=== PATIENT | female | born 1950 | race Caucasian/White ===

== ENCOUNTER → 2016-10-25 | Outpatient (CLI) | payer MEDICARE, OTHER ==
[~2016-10-25] MED LIST: ALPR0.254 PO; IBUP-1773 PO; LISI1TAB8 PO; METH5TAB5 PO; OSPE60TA2 PO; PROP20TA5 PO
--- NOTE | 2016-10-25 12:01 | Diagnostic Imaging Report ---
Three views of the lumbar spine. INDICATION: Low back pain. FINDINGS: The alignment of the lumbar spine is satisfactory. The vertebral body heights are preserved. There is mild right convexity curvature, which could be positional. The disc heights are also preserved. No significant posterior osteophytes seen. The sacroiliac joints are well aligned. Aortic calcifications are incidentally noted. IMPRESSION: Mild right convexity curvature could be positional or related to mild scoliosis. Dictated by: Dictated on workstation # [id number]
--- NOTE | 2016-10-25 12:13 | Diagnostic Imaging Report ---
3 views of the sacrum and coccyx. INDICATION: Low back pain. FINDINGS: The sacroiliac joint alignment is satisfactory. There is suggestion of a bone island seen in the left sacrum ala adjacent to the S2 neural foramen measuring [address] of 08/06/2015. Tailgut cyst abutting the anterior aspect of the coccyx is not appreciated on this radiograph. The coccyx is somewhat obscured which could be related to this abnormality on the lateral view. No radiopaque foreign body seen. IMPRESSION: The coccyx is not well visualized which could potentially be related to cystic mass seen on CT of 08/06/2015. Correlate clinically and with followup CT scan of the pelvis is recommended. Dictated by: Dictated on workstation # [id number]
== END ==
LOC: RAD 10:26
PROVIDERS: ATTEND Family Medicine
DX: M54.5 Low back pain (principal)
CPT/HCPCS: 72100; 72220

== ENCOUNTER → 2016-11-22 | Outpatient (CLI) | payer MEDICARE, OTHER ==
--- NOTE | 2016-11-22 17:06 | Diagnostic Imaging Report ---
EXAMINATION: Transabdominal and transvaginal pelvic ultrasound. INDICATION: Uterine cyst. COMPARISON: 05/18/2016. FINDINGS: The uterus is 7.3 x 4.7 x 3.1 cm. There is interval thickening of the endometrium with a cystic area seen in the endometrium. The endometrial thickness is 7 mm, increased from the previous exam of 05/18/2016. There is some a cystic area again noted in the left side of the fundus of the uterus close to the endometrium. This was seen previously; however, there is a new echogenic focus seen within it. The cyst measurements are 1.2 x 1.2 x 1.1 cm. The echogenic focus demonstrates no definite internal vascularity with color Doppler and is 6 mm in size. The ovaries are obscured by bowel gas. IMPRESSION: Interval increased thickening in the endometrial stripe with cystic areas noted. The previously seen 1.1 cm cyst in the fundus now contains an echogenic focus measuring 6 mm inside it. Etiology is uncertain. The endometrial thickening may relate to an endometrial polyp, hyperplasia, or endometrial carcinoma. Report faxed to Dr. Diaz at 5:08 p.m. 11/22/2016/lisseth Dictated by: Dictated on workstation # [id number]
== END ==
LOC: RAD 15:47
PROVIDERS: ATTEND Obstetrics & Gynecology
DX: N85.8 Other specified noninflammatory disorders of uterus (principal)
CPT/HCPCS: 76830; 76856

== ENCOUNTER 2016-12-26 10:02 | Outpatient (CLI) | payer MEDICARE, OTHER ==
[~2016-12-26] VITALS: Ht 160 cm; Wt 76.9 kg
--- OUTSIDE RECORDS SUMMARY | 2016-12-26 10:07 | XMS REPORT | Continuity of Care Document ---
Author Author [facility] Organization [facility] Address Unknown Phone Unavailable Allergies Active Description Code Type Severity Reaction Onset Reported/Identified Relationship to Patient Clinical Status Yes metoclopramide [id number] Drug Allergy Unknown N/A 11/03/2008 Medications Problems Date Dx Coded Attending Type Code Diagnosis Diagnosed By 08/26/2015 JAREK KONG MD Ot K44.9 08/26/2015 DILAN WHITE, JAREK Camilo Ot R16.0 08/27/2015 JAREK KONG MD Ot M54.9 08/27/2015 DILAN WHITE, JAREK Camilo Ot N39.0 09/15/2015 JAREK KONG MD Ot M54.9 09/15/2015 DILAN WHITE, JAREK Camilo Ot N39.0 09/24/2015 DILAN WHITE, JAREK Camilo Ot K44.9 09/24/2015 JAREK KONG MD Ot R16.0 06/13/2016 STEPHANIE FELDER DO Ot 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 06/24/2016 STEPHANIE FELDER DO Ot 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 10/25/2016 JAREK KONG MD Ot M54.9 DORSALGIA, UNSPECIFIED 10/25/2016 JAREK KONG MD Ot N39.0 URINARY TRACT INFECTION, SITE NOT SPECIF 10/25/2016 JAREK KONG MD Ot K44.9 DIAPHRAGMATIC HERNIA WITHOUT OBSTRUCTION 10/25/2016 JAREK KONG MD Ot R16.0 HEPATOMEGALY, NOT ELSEWHERE CLASSIFIED 10/25/2016 STEPHANIE FELDER DO Ot 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 Visit Date/Time Discharge Status Pt. Type Provider Facility Loc./Unit Complaint [id number] 08/06/2015 13:54:00 2014 23:59:59 CLS Outpatient JAREK KONG MD [facility] RAD LIVER AND RETRORECTAL LESIONS [id number] 08/03/2015 15:24:00 2014 23:59:59 CLS Outpatient JAREK KONG MD [facility] RAD UTI, BACK PAIN [id number] 11/22/2016 15:47:00 ACT Outpatient STEPHANIE FELDER DO [facility] RAD UTERINE CYST [id number] 10/25/2016 10:26:00 ACT Outpatient MARTHA GARCIA DO [facility] RAD LOW BACK PAIN RIGHT SI JOINT [id number] 05/18/2016 15:18:00 ACT Outpatient STEPHANIE FELDER DO [facility] RAD UTERINE MASS
[2016-12-26] MEDS ORDERED: METH5TAB5 PO (10:16)
[2016-12-26] MEDS ORDERED: LISI1TAB8 PO (10:16)
[2016-12-26] MEDS ORDERED: OSPE60TA2 PO (10:16)
[2016-12-26] MEDS ORDERED: ALPR0.254 PO (10:16)
[2016-12-26] MEDS ORDERED: PROP20TA5 PO (10:16)
[2016-12-26 10:19] VITALS: BP 111/71
[2016-12-26 10:46] LABS: BASOPHILS % (AUTO) 0 % (0-10); EOSINOPHILS # (AUTO) 0.2 10^3/uL (0.0-0.3); EOSINOPHILS % (AUTO) 3 % (0-10); LYMPHOCYTES # (AUTO) 1.9 X 10^3 (1.0-4.0); LYMPHOCYTES % (AUTO) 29 % (12-44); MEAN CORPUSCULAR HEMOGLOBIN 29 PG (25-34); MEAN CORPUSCULAR HGB CONC 32 G/DL (32-36); MEAN CORPUSCULAR VOLUME 89 FL (80-99); MEAN PLATELET VOLUME 10.5 FL (7.4-10.4); MONOCYTES % (AUTO) 15 % (0-12); NEUTROPHILS # (AUTO) 3.4 X 10^3 (1.8-7.8); NEUTROPHILS % (AUTO) 53 % (42-75); PLATELET COUNT 303 10^3/uL (130-400); RED BLOOD COUNT 4.35 10^6/uL (4.35-5.85); RED CELL DISTRIBUTION WIDTH 12.7 % (10.0-14.5); WHITE BLOOD COUNT 6.4 10^3/uL (4.3-11.0)
[2016-12-29] MEDS ORDERED: IBUP-1773 PO (11:03)
== END 2016-12-26 12:03 | disposition home or self-care (01) ==
LOC: PREOP 10:02
PROVIDERS: ATTEND Obstetrics & Gynecology
DX: Z01.812 Encounter for preprocedural laboratory examination (principal); Z11.2 Encounter for screening for other bacterial diseases; R93.8 Abnormal findings on diagnostic imaging of other specified body structures
CPT/HCPCS: 36415; 85025; 86850; 86900; 86901; 87081

== ENCOUNTER 2016-12-29 08:30 | Day surgery (SDC) | payer MEDICARE, OTHER ==
[~2016-12-29] VITALS: Ht 160 cm; Wt 76.9 kg
[~2016-12-29 08:30] MED LIST changes: -IBUP-1773 PO
--- OUTSIDE RECORDS SUMMARY | 2016-12-29 08:38 | XMS REPORT | Continuity of Care Document ---
Author Author [facility] Organization [facility] Address Unknown Phone Unavailable Allergies Active Description Code Type Severity Reaction Onset Reported/Identified Relationship to Patient Clinical Status Yes metoclopramide [id number] Drug Allergy Unknown N/A 11/03/2008 Yes metoclopramide [id number] Drug Allergy Moderate N/V 12/26/2016 Medications Problems Date Dx Coded Attending Type Code Diagnosis Diagnosed By 08/26/2015 JAREK KONG MD Ot K44.9 08/26/2015 DILAN WHITE, JAREK Camilo Ot R16.0 08/27/2015 DILAN WHITE, JAREK Camilo Ot M54.9 08/27/2015 DILAN WHITE, JAREK Camilo Ot N39.0 09/15/2015 DILAN WHITE, JAREK Camilo Ot M54.9 09/15/2015 DILAN WHITE, JAREK Camilo Ot N39.0 09/24/2015 DILAN WHITE, JAREK Camilo Ot K44.9 09/24/2015 DILAN WHITE, JAREK Camilo Ot R16.0 06/13/2016 STEPHANIE FELDER DO Ot [...] DO Ot N85.8 OTHER SPECIFIED NONINFLAMMATORY DISORDER 12/27/2016 STEPHANIE FELDER DO Ot R93.8 ABNORMAL FINDINGS ON DIAGNOSTIC IMAGING 12/27/2016 STEPHANIE FELDER DO Ot Z01.812 ENCOUNTER FOR PREPROCEDURAL LABORATORY E 12/27/2016 STEPHANIE FELDER DO Ot Z11.2 ENCOUNTER FOR SCREENING FOR OTHER BACTER Procedures Results Test Result Range Complete blood count (CBC) with automated white blood cell (WBC) differential - 12/26/16 10:15 Blood leukocytes automated count (number/volume) 6.4 10*3/ uL 4.3-11.0 Blood erythrocytes automated count (number/volume) 4.35 10*6 /uL 4.35-5.85 Venous blood hemoglobin measurement (mass/volume) 12.5 g/dL 11.5-16.0 Blood hematocrit (volume fraction) 39 % 35-52 Automated erythrocyte mean corpuscular volume 89 [foz_us] 80-99 Automated erythrocyte mean corpuscular hemoglobin (mass per erythrocyte) 29 pg 25-34 Automated erythrocyte mean corpuscular hemoglobin concentration measurement ( mass/volume) 32 g/dL 32-36 Automated erythrocyte distribution width ratio 12.7 % 10.0-14.5 Automated blood platelet count (count/volume) 303 10*3/uL 130-400 Automated blood platelet mean volume measurement 10.5 [foz_ us] 7.4-10.4 Automated blood neutrophils/100 leukocytes 53 % 42-75 Automated blood lymphocytes/100 leukocytes 29 % 12-44 Blood monocytes/100 leukocytes 15 % 0-12 Automated blood eosinophils/100 leukocytes 3 % 0-10 Automated blood basophils/100 leukocytes 0 % 0-10 Blood neutrophils automated count (number/volume) 3.4 10*3 1.8-7.8 Blood lymphocytes automated count (number/volume) 1.9 10*3 1.0-4.0 Blood monocytes automated count (number/volume) 1.0 10*3 0.0-1.0 Automated eosinophil count 0.2 10*3/uL 0.0-0.3 Automated blood basophil count (count/volume) 0.0 10*3/uL 0.0-0.1 Blood type T Indirect antibody screen panel - 12/26/16 10:15 ABO+Rh group OP NRG Blood group antibody screen NEGATIVE NRG Methicillin resistant Staphylococcus aureus (MRSA) screening culture - 10:15 Methicillin resistant Staphylococcus aureus (MRSA) screening culture NEG NRG Encounters ACCT No. Visit Date/Time Discharge Status Pt. Type Provider Facility Loc./Unit Complaint [id number] 12/26/2016 10:02:00 2016 12:03:00 DIS Outpatient STEPHANIE FELDER DO [facility] PREOP THICKENED UTERUS [id number] 08/06/2015 13:54:00 2014 23:59:59 CLS Outpatient JAREK KONG MD [facility] RAD LIVER AND RETRORECTAL LESIONS [id number] 08/03/2015 15:24:00 2014 23:59:59 CLS Outpatient JAREK KONG MD [facility] RAD UTI, BACK PAIN [id number] 12/29/2016 08:30:00 ACT Outpatient STEPHANIE FELDER DO [facility] SDC THICKENED UTERUS [id number] 11/22/2016 15:47:00 ACT Outpatient STEPHANIE FELDER DO [facility] RAD UTERINE CYST [id number] 10/25/2016 10:26:00 ACT Outpatient MARTHA GARCIA DO [facility] RAD LOW BACK PAIN RIGHT SI JOINT [id number] 05/18/2016 15:18:00 ACT Outpatient STEPHANIE FELDER DO [facility] RAD UTERINE MASS
--- OUTSIDE RECORDS SUMMARY | 2016-12-29 08:39 | XMS REPORT | Continuity of Care Document ---
Author Author [facility] Organization [facility] Address Unknown Phone Unavailable Allergies Active Description Code Type Severity Reaction Onset Reported/Identified Relationship to Patient Clinical Status Yes metoclopramide [id number] Drug Allergy Unknown N/A 11/03/2008 Yes metoclopramide [id number] Drug Allergy Moderate N/V 12/26/2016 Medications Problems [...] Status Pt. Type Provider Facility Loc./Unit Complaint [id number] 12/26/2016 10:02:00 2016 12:03:00 DIS Outpatient STEPHANIE FELDER DO [facility] PREOP THICKENED UTERUS [id number] 08/06/2015 13:54:00 2014 23:59:59 CLS Outpatient JAREK KONG MD [facility] RAD LIVER AND RETRORECTAL LESIONS [id number] 08/03/2015 15:24:00 2014 23:59:59 CLS Outpatient JAREK KONG MD [facility] RAD UTI, BACK PAIN [id number] 12/29/2016 08:30:00 ACT Outpatient STEPHANIE FELDER DO [facility] SDC THICKENED UTERUS [id number] 11/22/2016 15:47:00 ACT Outpatient STEPHANIE FELDER DO [facility] RAD UTERINE CYST [id number] 10/25/2016 10:26:00 ACT Outpatient MARTHA GARCIA DO [facility] RAD LOW BACK PAIN RIGHT SI JOINT [id number] 05/18/2016 15:18:00 ACT Outpatient STEPHANIE FELDER DO [facility] RAD UTERINE MASS
[2016-12-29 09:03] VITALS: BP 115/56
[2016-12-29] MEDS ORDERED: BUPIVACAINE 0.25% 30 ML (SENSORCAINE) VIAL ONE (09:20)
[2016-12-29] MEDS ORDERED: LACTATED RINGERS 1,000 ML IV PRN (09:26)
[2016-12-29] MEDS ORDERED: LIDOCAINE PF 2% 10 ML (XYLOCAINE) AMP ONE (09:29)
[2016-12-29] MEDS ORDERED: SEVOFLURANE (ULTANE) 15 ML INHAL SOLN ONE (09:29)
[2016-12-29] MEDS ORDERED: proPOfol 200 MG/20 ML (DIPRIVAN) VIAL IV ONE (09:29)
[2016-12-29] MEDS ORDERED: DEXAMETHASONE PF 10 MG/ML (DECADRON) VIAL ONE (09:29)
[2016-12-29] MEDS ORDERED: MIDAZOLAM 2 MG/2 ML (VERSED) VIAL ONE (09:30)
[2016-12-29] MEDS ORDERED: ONDANSETRON 4 MG/2 ML (SDV) Z0FRAN IV ONE (09:30)
[2016-12-29] MEDS ORDERED: fentaNYL INJECTION 100 MCG/2 ML AMP ONE (09:30)
[2016-12-29] MEDS ORDERED: FAMOTIDINE 20MG/2ML IV (PEPCID) IV ONE (09:30)
[2016-12-29] MEDS ORDERED: SCOPOLAMINE 1.5 MG (TRANSDERM-SCOP) PATCH TOP ONE (09:30)
--- NOTE | 2016-12-29 10:17 | Progress Note-Pre Operative ---
Pre-Operative Progress Note H&P Reviewed The H&P was reviewed, patient examined and no changes noted. Date H&P Reviewed: Dec 29, 2016 Time H&P Reviewed: 10:15 Pre-Operative Diagnosis: Thickened endometrium, Cystic endometrium STEPHANIE FELDER DO Dec 29, 2016 10:17 am
[2016-12-29] MEDS ORDERED: morphine INJ 10 MG/ML 1ML (SYR OR VIAL) IVP PRN (11:00)
[2016-12-29] MEDS ORDERED: MEPERIDINE (DEMEROL) INJ 50 MG/ML IVP PRN (11:00)
[2016-12-29] MEDS ORDERED: ONDANSETRON 4 MG/2 ML (SDV) Z0FRAN IVP PRN ×2 (11:00→11:15)
[2016-12-29] MEDS ORDERED: D5 LR IV SOLUTION 1,000 ML IV SCH (11:02)
[2016-12-29] MEDS ORDERED: IBUP-1773 PO (11:03)
--- NOTE | 2016-12-29 11:04 | Discharge Inst-Women's Service ---
Discharge Inst-Women's Serv Depart Medication/Instructions New, Converted or Re-Newed RX: RX on Chart Consults/Follow Up Additional Follow Up: Yes Orders/Referrals Dr. Felder in 2 weeks Activity Activity: Activity as Tolerated Driving Instructions: You May Drive NO SMOKING: NO SMOKING Nothing Inside Vagina: No Douching, No [place], No Tampons Diet Discharge Diet: No Restrictions Symptoms to Report to : Bleeding Excessive, Pain Increased, Fever Over 101 Degrees F, Vaginal Bleeding Increase, Questions/Concerns For Any Problems or Questions: Contact Your Physician STEPHANIE FELDER DO Dec 29, 2016 11:04
[2016-12-29] MEDS ORDERED: KETOROLAC 30 MG/ML VIAL IVP ONE (11:15)
[2016-12-29 12:00] VITALS: BP 99/51
[2016-12-29] MEDS ORDERED: IBUPROFEN TABLET 200 MG TAB PO ONE (12:05)
[2016-12-29] MEDS ORDERED: IBUPROFEN 600 MG (MOTRIN) TAB PO ONE (12:15)
[2016-12-29 12:30] VITALS: BP 99/51
[2016-12-29 12:55] VITALS: BP 99/51
--- NOTE | 2016-12-29 12:55 | OPERATIVE REPORT ---
PROCEDURE PHYSICIAN: STEPHANIE FELDER DATE OF PROCEDURE: 12/29/2016 PREOPERATIVE DIAGNOSIS: 1. 66-year-old female with thickened endometrium. 2. Cystic endometrium appearing on ultrasound. POSTOPERATIVE DIAGNOSES: 1. 66-year-old female with thickened endometrium. 2. Cystic endometrium appearing on ultrasound. PROCEDURE: D&C with hysteroscopy. SURGEON: Dr. Stephanie Felder. ANESTHESIA: General endotracheal. ESTIMATED BLOOD LOSS: Minimal. URINE OUTPUT: 200 mL, clear urine drained at the end of the procedure. FLUIDS: 600 mL of lactated ringer solution. FINDINGS: Normal atrophic appearing endometrial cavity, some cervical stenosis, some mucinous appearing secretions upon dilation of the cervix, age appropriate atrophy of the vagina and external female genitalia. SPECIMEN SENT: Endometrial curettings. INDICATIONS FOR THE PROCEDURE: This 66-year-old female was a consultation to my office for thickened endometrium on ultrasound as well as cystic appearing endometrial cavity. I discussed with the patient these findings and how they were concerning for underlying malignancy and discussed proceeding with a diagnostic procedure to rule out signs of endometrial cancer. The risk of the procedure was discussed with the patient in detail including risk of bleeding, infection, damaging any of the surrounding structures, including not limited to uterus, bowel, bladder, ureter, kidneys, risk of uterine perforation, and risk of bleeding, risk of infection. After everything was discussed with the patient her consent was obtained in the preoperative area and the patient was taken to the operating room. OPERATIVE REPORT IN DETAIL: Once in the operating room, general anesthesia was found to be adequate. She was placed in the dorsal lithotomy position, prepped and draped in the normal sterile fashion. A right angle retractor is used to visualize the cervix by pressing downward on the posterior vaginal wall. I am able to grasp it with a long Allis clamp and I perform a paracervical block at 3 and 9 o'clock position using 0.25% Marcaine 5 mm in each injection site at 3 and 9. Care was taken to aspirate before injecting. I then gently dilate the cervix using Hegar dilators and this allows me to sound the uterine cavity depth to approximately 6 cm. I then gently advance a hysteroscope using normal saline as my visual medium. I am able to visualize the endometrial canal, which was atrophic. There is not a whole lot of fluffy endometrial tissue noted. There is no submucosal mass. No lesions noted within the endometrial cavity. I then remove the hysteroscope and gently curette the endometrial cavity using a medium size endometrial curette. This tissue is sent as endometrial curettings. All the other measures were removed from the patient's vagina. The patient tolerated the procedure well and she was taken to the recovery area in stable condition. Lap and sponge counts were correct at the end of the procedure. Instrument counts correct as well. Job ID: [id number] Dictated Date: 12/29/2016 11:01:29 Transaction Manager Date: 12/29/2016 12:46:52 / [email or web address]
== END 2016-12-29 12:55 | disposition home or self-care (01) ==
LOC: SDC 08:30
PROVIDERS: ATTEND Obstetrics & Gynecology
DX: R93.8 Abnormal findings on diagnostic imaging of other specified body structures (principal)
CPT/HCPCS: 88305; 94664

== ENCOUNTER 2017-07-24 20:06 | Emergency (ER) | payer MEDICARE, OTHER ==
[~2017-07-24] VITALS: Ht 160 cm; Wt 77.1 kg
[~2017-07-24 20:06] MED LIST changes: +IBUP-1773 PO
[2017-07-24 20:18] LABS: BASOPHILS % (AUTO) 0 % (0-10); EOSINOPHILS # (AUTO) 0.2 10^3/uL (0.0-0.3); EOSINOPHILS % (AUTO) 3 % (0-10); LYMPHOCYTES % (AUTO) 44 % (12-44); MEAN CORPUSCULAR HEMOGLOBIN 28 PG (25-34); MEAN CORPUSCULAR HGB CONC 33 G/DL (32-36); MEAN CORPUSCULAR VOLUME 87 FL (80-99); MONOCYTES # (AUTO) 0.9 X 10^3 (0.0-1.0); MONOCYTES % (AUTO) 14 % (0-12); NEUTROPHILS # (AUTO) 2.6 X 10^3 (1.8-7.8); NEUTROPHILS % (AUTO) 38 % (42-75); PLATELET COUNT 307 10^3/uL (130-400); RED BLOOD COUNT 4.22 10^6/uL (4.35-5.85); RED CELL DISTRIBUTION WIDTH 12.7 % (10.0-14.5); WHITE BLOOD COUNT 6.7 10^3/uL (4.3-11.0)
[2017-07-24] MEDS ORDERED: NS 100 ML (IVPB) BAG IV ONE (20:30)
[2017-07-24] MEDS ORDERED: IOHEXOL 350 MG/ML 100 ML (OMNIPAQUE 350) VIAL IV ONE (20:30)
[2017-07-24 20:37] LABS: CREATININE SERUM 0.98 MG/DL (0.60-1.30); POTASSIUM 3.7 MMOL/L (3.6-5.0)
[2017-07-24] MEDS ORDERED: fentaNYL INJECTION 100 MCG/2 ML AMP IVP ONE (21:45)
[2017-07-24] MEDS ORDERED: ONDANSETRON 4 MG/2 ML (SDV) Z0FRAN IVP ONE (22:30)
[2017-07-24 23:40] VITALS: BP 123/75
== END 2017-07-24 23:40 | disposition short-term general hospital (02) ==
LOC: EDUNIT# 20:06 → ER 20:07
DX: S46.911A Strain of unspecified muscle, fascia and tendon at shoulder and upper arm level, right arm, initial encounter (principal); S86.819A Strain of other muscle(s) and tendon(s) at lower leg level, unspecified leg, initial encounter; I10 Essential (primary) hypertension; E03.9 Hypothyroidism, unspecified; F41.9 Anxiety disorder, unspecified; Z87.59 Personal history of other complications of pregnancy, childbirth and the puerperium; V49.40XA Driver injured in collision with unspecified motor vehicles in traffic accident, initial encounter
CPT/HCPCS: 36415; 70450; 71250; 72040; 72125; 73552; 73590; 74176; 80048; 85025; 96374; 96375

== ENCOUNTER → 2017-08-01 | Outpatient (CLI) | payer MEDICARE, OTHER ==
--- NOTE | 2017-08-01 10:08 | Diagnostic Imaging Report ---
PROCEDURE: US venous upper extremity left. TECHNIQUE: Multiple realtime grayscale images were obtained of left upper extremity in various projections. Duplex Doppler and and color Doppler images were also obtained. INDICATION: Pain and swelling in the left forearm. FINDINGS: There is thrombus in the left cephalic vein extending from the lower biceps to the wrist. The remainder of the left upper extremity venous system is widely patent. There are no abnormal fluid collections or masses. IMPRESSION: Thrombus in the cephalic vein extending from the biceps to the wrist. By history the patient had recent IV in this vein. No other evidence of deep venous thrombosis in the left upper extremity. Dictated by: Dictated on workstation # [id number]
== END ==
LOC: RAD 09:17
DX: I74.2 Embolism and thrombosis of arteries of the upper extremities (principal)

== ENCOUNTER → 2017-10-09 | Outpatient (CLI) | payer MEDICARE, OTHER ==
--- NOTE | 2017-10-09 16:50 | Diagnostic Imaging Report ---
PROCEDURE: US venous upper extremity left. TECHNIQUE: Multiple realtime grayscale images were obtained of left upper extremity in various projections. Duplex Doppler and and color Doppler images were also obtained. INDICATION: Followup thrombus in the cephalic vein. COMPARISON: 08/01/17. FINDINGS: The left internal jugular vein, subclavian, axillary, brachial, ulnar, radial, basilar, and cephalic veins are all patent with compressibility and color flow and normal waveform seen. IMPRESSION: No evidence of DVT in the left upper extremity. The previously seen thrombus in the left cephalic vein has also resolved. Dictated by: Dictated on workstation # [id number]
== END ==
LOC: RAD 14:42
PROVIDERS: ATTEND Nurse Practitioner Family
DX: Z09 Encounter for follow-up examination after completed treatment for conditions other than malignant neoplasm (principal); Z86.718 Personal history of other venous thrombosis and embolism

== ENCOUNTER → 2017-11-09 | Outpatient (CLI) | payer MEDICARE, OTHER ==
--- NOTE | 2017-11-09 17:00 | Diagnostic Imaging Report ---
US NON OB PELVIS COMP/TRANSVAG TECHNIQUE: Transabdominal and transvaginal grayscale, color Doppler and pulse duplex imaging of the pelvis was performed. INDICATION: Followup cystic structure within the uterus. FINDINGS: The uterus measures 6.2 x 3.7 x 3.2 cm. There is a stable intramural anechoic cyst within the fundus of the uterus measuring 1.2 x 1.2 x 1.2 cm. Avascular 6 mm nodule along the superior margin of the cyst is stable. The endometrium measures 0.5 cm in thickness. Both ovaries are obscured by surrounding bowel gas on transabdominal and transvaginal imaging. No suspicious adnexal mass or free fluid. IMPRESSION: 1. The intramural cystic structure with solid mural nodule in the fundus of the uterus is unchanged since 11/22/2016 examination. 2. Endometrium is normal in thickness measuring 0.5 cm. Dictated by: Dictated on workstation # [id number]
== END ==
LOC: RAD 15:56
PROVIDERS: ATTEND Obstetrics & Gynecology
DX: N85.8 Other specified noninflammatory disorders of uterus (principal)
CPT/HCPCS: 76830; 76856

== ENCOUNTER → 2018-02-27 | Outpatient (CLI) | payer MEDICARE, OTHER ==
--- NOTE | 2018-02-27 09:42 | Diagnostic Imaging Report ---
EXAMINATION: Hepatic ultrasound. INDICATION: Right upper quadrant pain. COMPARISON: There are no prior ultrasound examinations available for comparison. FINDINGS: The CT abdomen/pelvis exam of 07/24/2017 failed to show any abnormality of the liver. On this exam, the liver does not appear to be enlarged. There is no focal mass involving the liver and the biliary tree is not abnormally dilated. There is no evidence for cholelithiasis or acute cholecystitis and the common bile duct is not dilated. The wall of the gallbladder does seem somewhat echogenic but, in reviewing the CT exam, there was no evidence for calcium within the wall to suggest a porcelain gallbladder. The right kidney is unremarkable. The pancreas and proximal aorta were obscured by bowel gas. IMPRESSION: 1. The liver does not appear to be enlarged and there is no focal mass involving the liver. 2. There is no evidence for cholelithiasis or acute cholecystitis and the common bile duct is not dilated. Dictated by: Dictated on workstation # [id number]
== END ==
LOC: RAD 07:57
PROVIDERS: ATTEND Family Medicine
DX: R10.11 Right upper quadrant pain (principal)
CPT/HCPCS: 76705

== ENCOUNTER → 2018-03-12 | Outpatient (CLI) | payer MEDICARE, OTHER ==
[~2018-03-12] MED LIST changes: +CATHETER FLUSH 10 ML SYR IV PRN
--- NOTE | 2018-03-12 13:36 | Diagnostic Imaging Report ---
INDICATION: Right upper quadrant pain. TECHNIQUE: The patient was administered 4.9 mCi of technetium 99m Choletec intravenously and imaging over the abdomen was performed. After 45 minutes, the patient ingested a can of Ensure and the gallbladder ejection fraction was calculated. FINDINGS: There is homogeneous uptake of activity by the liver with prompt excretion of activity into the common duct and gallbladder. Normal passage of activity into the small bowel is seen. The gallbladder ejection fraction is normal at 50%. IMPRESSION: Normal HIDA scan and gallbladder ejection fraction. Dictated by: Dictated on workstation # [id number]
== END ==
LOC: CARD 10:58
PROVIDERS: ATTEND Family Medicine
DX: R10.11 Right upper quadrant pain (principal)
CPT/HCPCS: 78227

== ENCOUNTER → 2018-08-14 | Outpatient (CLI) | payer MEDICARE, OTHER ==
[~2018-08-14] MED LIST changes: -CATHETER FLUSH 10 ML SYR IV PRN
--- NOTE | 2018-08-14 17:37 | Diagnostic Imaging Report ---
PROCEDURE: US Non-ob pelvis comp/trans. TECHNIQUE: Multiple real-time grayscale images were obtained of the pelvis in various projections endovaginally. Transabdominal imaging was also performed. INDICATION: Uterine cyst. The study is performed for follow-up. Correlation is made with prior ultrasound from 11/09/2017. FINDINGS: The uterus measures 6.5 x 4.2 x 3.2 cm. Uterine cystic mass with mural nodularity is again noted. This measures 15 mm x 15 mm x 16 mm compared with 12 mm x 12 mm x 12 mm on prior. The avascular nodule is similar at approximately 6 mm x 8 mm. Endometrium is 4 mm in thickness. No other masses are seen. Ovaries are not visualized. IMPRESSION: Cystic mass with mural nodule is redemonstrated and similar to perhaps slightly larger when compared with ultrasound from 11/09/2017. No new abnormality is seen. Dictated by: Dictated on workstation # [id number]
== END ==
LOC: RAD 15:43
PROVIDERS: ATTEND Obstetrics & Gynecology
DX: N85.8 Other specified noninflammatory disorders of uterus (principal)
CPT/HCPCS: 76830; 76856

== ENCOUNTER → 2018-11-16 | Outpatient (CLI) | payer MEDICARE, OTHER ==
--- NOTE | 2018-11-16 17:11 | Diagnostic Imaging Report ---
INDICATION: Back pain with kyphosis. COMPARISON: None available. TECHNIQUE: Three views of the thoracic spine were obtained. FINDINGS: There is mildly exaggerated kyphosis within the thoracic spine. However, there are no compression deformities within the vertebral bodies. Multilevel degenerative disc disease is mild in severity. Moderate-sized hiatal hernia is present. IMPRESSION: 1. No compression fracture within the thoracic spine. 2. Moderate-sized hiatus hernia. Dictated by: Dictated on workstation # [id number]
== END ==
LOC: RAD 15:51
PROVIDERS: ATTEND Family Medicine
DX: M40.294 Other kyphosis, thoracic region (principal); K44.9 Diaphragmatic hernia without obstruction or gangrene
CPT/HCPCS: 72072

== ENCOUNTER → 2018-12-04 | Outpatient (CLI) | payer MEDICARE, OTHER ==
--- NOTE | 2018-12-04 13:57 | Diagnostic Imaging Report ---
INDICATION: Postmenopausal screening for osteopenia. COMPARISON: None. FINDINGS: AP Spine L1-L4: [BMD (g/cm2): 0.943] [T-Score: -2.1] [Z-Score: -0.8] [BMD Previous: N/A] [BMD % Change: N/A] LT Hip Neck: [BMD (g/cm2): .709] [T-Score: -2.4] [Z-Score: -0.9] LT Hip Total: [BMD (g/cm2):0.807] [T-Score:-1.6] [Z-Score: -0.3] [BMD Previous: N/A] [BMD % Change: N/A] RT Hip Neck: [BMD (g/cm2):0.709] [T-Score:-2.4] [Z-Score:-0.9] RT Hip Total: [BMD (g/cm2):0.796] [T-score:-1.7] [Z-Score:-0.4] [BMD Previous:N/A] [BMD % Change:N/A] *Indicates significant change from prior examination based on 95% confidence level. World Health Organization criteria for BMD interpretation classify patients as Normal (T-score at or above -1.0), Osteopenic (T-score between -1.0 and -2.5) or Osteoporotic (T-score at or below -2.5). LIMITATIONS AND MODIFICATION: None. FRACTURE RISK (FRAX SCORE): The ten year probability of (%): Major Osteoporotic Fracture: [14] Hip Fracture: [3.3] IMPRESSION: 1. Osteopenia (Low bone mass). 2. Baseline examination. 3. See below National Osteoporosis Foundation guidelines on when to potentially initiate pharmacologic therapy. Based on the National Osteoporosis Foundation Guidelines, pharmacologic treatment should be initiated in any of the following, unless clinical conditions suggest otherwise: * Any patient with prior fragility fracture of the hip or vertebrae. A spine fracture indicates 5X risk for subsequent spine fracture and 2X risk for subsequent hip fracture. * Osteoporosis (T-score <-2.5). * Postmenopausal women and men age 50 and older with low bone mass/osteopenia (T-score between -1.0 and -2.5) by DXA and 10-year major osteoporotic fracture greater than 20% or a 10-year probability of hip fracture greater than 3%. These fracture risks are supplied above in the FRAX score, if applicable. * Clinician judgement and/or patient preferences may indicate treatment for people with 10-year fracture probabilities above or below these levels. Dictated by: Dictated on workstation # [id number]
== END ==
LOC: RAD 08:56
PROVIDERS: ATTEND Family Medicine
DX: Z12.31 Encounter for screening mammogram for malignant neoplasm of breast (principal); Z13.820 Encounter for screening for osteoporosis; M85.88 Other specified disorders of bone density and structure, other site; Z78.0 Asymptomatic menopausal state
CPT/HCPCS: 77067; 77080

== ENCOUNTER → 2018-12-28 | Outpatient (CLI) | payer MEDICARE, OTHER ==
--- NOTE | 2018-12-28 16:04 | Diagnostic Imaging Report ---
INDICATION: Right breast density. Patient presents for additional views. COMPARISON: Correlation is made with the recent screening study from 12/04/2018. TECHNIQUE: Unilateral right 2D and 3D diagnostic mammography was performed including conventional and 90 degree lateral views as well as spot compression ML and CC views. FINDINGS: The additional views confirm a small circumscribed nodule in the outer right breast at posterior depth approximately 9-10 cm from the nipple. No suspicious calcifications are seen. IMPRESSION: Small circumscribed nodule in the outer right breast. Further evaluation with ultrasound is recommended and will be performed today. ACR BI-RADS Category 0: Incomplete. (Needs additional imaging evaluation). Result letter will be mailed to the patient. Note: At least 10% of breast cancer is not imaged by mammography. Dictated by: Dictated on workstation # [id number]
--- NOTE | 2018-12-28 16:14 | Diagnostic Imaging Report ---
INDICATION: Right breast nodule. This study is performed for further evaluation. COMPARISON: Correlation is made with the diagnostic mammogram from earlier this same day. FINDINGS: Sonographic interrogation of the outer right breast demonstrates a circumscribed hypoechoic nodule at the 9:30 location 7 cm from the nipple, suggestive of a cyst. This measures 5 mm x 4 mm. This does correlate in size and location to the nodule noted on the mammogram. No other abnormalities are seen. IMPRESSION: Simple appearing cyst at the 9:30 location of the right breast corresponding with the mammographic density. The patient may return to routine annual screening mammography. ACR BI-RADS Category 2: Benign findings. Dictated by: Dictated on workstation # [id number]
== END ==
LOC: RAD 13:57
PROVIDERS: ATTEND Family Medicine
DX: N60.01 Solitary cyst of right breast (principal); N63.11 Unspecified lump in the right breast, upper outer quadrant

== ENCOUNTER → 2019-05-06 | Outpatient (CLI) | payer MEDICARE, OTHER ==
--- NOTE | 2019-05-06 15:52 | Diagnostic Imaging Report ---
PROCEDURE: CT urinary tract, rule out kidney stone. TECHNIQUE: Multiple contiguous axial images were obtained through the abdomen and pelvis without the use of intravenous contrast. Auto Exposure Controls were utilized during the CT exam to meet ALARA standards for radiation dose reduction. INDICATION: Pain between the shoulder blades for six months. COMPARISON: Correlation is made with prior CT from 07/24/2017. FINDINGS: The lung bases are clear. There is a moderate-sized hiatal hernia. No discrete liver mass is identified. Gallbladder is unremarkable. No biliary ductal dilatation is seen. Pancreas and spleen are unremarkable. No adrenal mass is identified. No renal or ureteral calculi or evidence of hydronephrosis is identified. Aorta is calcified but nonaneurysmal. Small and large bowel loops are normal in caliber. There is no obstruction. Appendix is unremarkable. There is no ascites. Bladder and uterus are unremarkable. Very small fat-containing umbilical hernia is noted. Bony structures are nonacute. IMPRESSION: Unremarkable noncontrast CT of the abdomen and pelvis apart from a moderate-sized hiatal hernia and tiny fat containing umbilical hernia. No urinary tract calculi, obstruction or evidence of acute appendicitis or acute diverticulitis is seen. No acute feature is detected. Dictated by: Dictated on workstation # [id number]
== END ==
LOC: RAD 14:58
PROVIDERS: ATTEND Family Medicine
DX: K44.9 Diaphragmatic hernia without obstruction or gangrene (principal)
CPT/HCPCS: 74176

== ENCOUNTER → 2021-02-04 | Outpatient (CLI) | payer MEDICARE, OTHER ==
[~2021-02-04] MED LIST changes: +ALPR.25T PO; -ALPR0.254 PO; +LISI1TAB46 PO; -LISI1TAB8 PO
--- NOTE | 2021-02-05 09:20 | Diagnostic Imaging Report ---
INDICATION: Routine screening COMPARISON is made with prior mammogram from 12/04/2018. 2-D and 3-D bilateral screening mammography was performed with CAD. Both breasts are heterogeneously dense, limiting the sensitivity of mammography. A circumscribed nodule in the upper outer right breast appears stable. No new mass or malignant appearing microcalcifications are seen. The axillae are unremarkable. IMPRESSION: BI-RADS Category 2 No mammographic features suspicious for malignancy are identified. ACR BI-RADS Category 2: Benign findings. Result letter will be mailed to the patient. Note: At least 10% of breast cancer is not imaged by mammography. Dictated by: Dictated on workstation # [id number]
== END ==
LOC: RAD 15:30
PROVIDERS: ATTEND Family Medicine
DX: Z12.31 Encounter for screening mammogram for malignant neoplasm of breast (principal)
CPT/HCPCS: 77063; 77067

== ENCOUNTER 2021-06-17 13:45 | Emergency (ER) | payer MEDICARE, OTHER ==
[~2021-06-17] VITALS: Ht 160 cm; Wt 70.0 kg
[2021-06-17 13:45] VITALS: BP 136/79
[2021-06-17] MEDS ORDERED: ONDA4TAB11 SL (14:10)
[2021-06-17] MEDS ORDERED: OSLT75C PO (14:10)
--- NOTE | 2021-06-17 14:10 | ED General ---
General Chief Complaint: Oral/Throat Problems Stated Complaint: COVID Nursing Triage Note: Pt brought by [facility] on 2L of O2 for comfort. Per EMS pts sats have been around 95%. Pt reports feeling like her throat started swelling around 1250. Denies eating anything new, pt has had anxiety attacks that have felt similar. Pt was tested for covid and flu today at Dr. Silver and was positive. Pt in room 08 in stable conditions. Source of Information: Patient Exam Limitations: No Limitations History of Present Illness Date Seen by Provider: Jun 17, 2021 Allergies and Home Medications Allergies Coded Allergies: metoclopramide (Verified Allergy, Intermediate, N/V, 12/26/16) Uncoded Allergies: iv contrast for CT (Allergy, Severe, 07/24/17) Home Medications ALPRAZolam 0.25 Mg Tablet, 0.25 MG PO PRN PRN for ANXIETY, (Reported) Ibuprofen 600 Mg Tablet, 600 MG PO Q6H Prescribed by: STEPHANIE FELDER on 12/29/16 1103 Lisinopril/Hydrochlorothiazide 1 Each Tablet, 1 EACH PO DAILY, (Reported) Methimazole 5 Mg Tablet, 5 MG PO DAILY, (Reported) Ospemifene 60 Mg Tablet, 60 MG PO DAILY, (Reported) Propranolol HCl 20 Mg Tablet, 20 MG PO BID, (Reported) Past Jpenjcz-Imczzw-Dqbwsd Hx Patient Social History Tobacco Use?: No Substance use?: No Alcohol Use?: Yes Alcohol type: Beer Alcohol Frequency: Once in a while Immunizations Up To Date Tetanus Booster (TDap): More than 5yrs First/Initial COVID19 Vaccinat: 01/10 Second COVID19 Vaccination Sid: 01/10 COVID19 Vaccine Magistrate: Matt Seasonal Allergies Seasonal Allergies: No Past Medical History Surgeries: Yes (lap pratibha-2003, CYST REMOVED BETWEEN RECTUM AND BLADDER) Section Respiratory: No Cardiac: Yes Hypertension Neurological: No Reproductive Disorders: Yes (UTERINE THICKENING) Sexually Transmitted Disease: No HIV/AIDS: No Gastrointestinal: Yes Musculoskeletal: No Endocrine: Yes Hypothyroidsim Loss of Vision: Bilateral Hearing Impairment: Denies Cancer: No Psychosocial: Yes (OCCASIONAL) Anxiety Integumentary: No Blood Disorders: No Adverse Reaction/Blood Tranf: No (N/A) Physical Exam Vital Signs Vital Signs - First Documented 06/17/21 13:45 Temp 37.0 Pulse 84 Resp 18 B/P (MAP) 136/79 (98) Pulse Ox 95 O2 Delivery Room Air Capillary Refill : Less Than 3 Seconds Height, Weight, BMI Height: 5'3.00" Weight: 170lbs. 8.0oz. [id number]; 27.00 BMI Method:Stated Progress/Results/Core Measures Suspected Sepsis SIRS Temperature: Pulse: 84 Respiratory Rate: 18 Blood Pressure 136 /79 Mean: 98 Results/Orders Vital Signs/I&O 06/17/21 13:45 Temp 37.0 Pulse 84 Resp 18 B/P (MAP) 136/79 (98) Pulse Ox 95 O2 Delivery Room Air Capillary Refill : Less Than 3 Seconds Blood Pressure Mean: 98 Departure Impression Primary Impression: COVID-19 Additional Impression: Influenza Disposition: 01 HOME, SELF-CARE Condition: Stable Departure-Patient Inst. Decision time for Depature: 14:06 Referrals: MARTHA GARCIA DO (PCP/Family) Primary Care Physician Patient Instructions: COVID-19 Overview, Flu Add. Discharge Instructions: Drink plenty of clear liquids to stay well-hydrated. Start Tamiflu as soon as possible. It works best if started within 48 hours of symptoms. Use Zofran (ondansetron) as prescribed for nausea and vomiting. Proceed with the monoclonal antibody infusion as ordered by Dr. GARCIA. If possible, obtain a pulse oximeter and check your oxygen saturations periodically and when feeling short of breath. If you have repeated measurements below 92%, return to the emergency room. If you have any measurements below 90%, return to the emergency room. Call with questions or concerns. Return to care if you have any other worsening of condition. All discharge instructions reviewed with patient and/or family. Voiced understanding. Scripts Oseltamivir Phosphate (Tamiflu) 75 Mg Cap 75 MG PO BID, #10 CAP Prov: MAGDA CHAPA MD 06/17/21 Ondansetron (Ondansetron Odt) 4 Mg Tab.rapdis 4 MG SL Q4H PRN for NAUSEA/VOMITING, #10 TAB Prov: MAGDA CHAPA MD 06/17/21 MAGDA CHAPA MD Jun 17, 2021 14:10
== END 2021-06-17 14:13 | disposition home or self-care (01) ==
LOC: EDUNIT# 13:45 → ER 13:46
DX: U07.1 COVID-19 (principal); I10 Essential (primary) hypertension; F41.9 Anxiety disorder, unspecified; Z79.899 Other long term (current) drug therapy
CPT/HCPCS: 99283

== ENCOUNTER 2021-06-18 11:03 | Outpatient (CLI) | payer MEDICARE, OTHER ==
[~2021-06-18] VITALS: Ht 160 cm; Wt 70.3 kg
[2021-06-18 11:02] VITALS: BP 111/61
[~2021-06-18 11:03] MED LIST changes: +ONDA4TAB11 SL; +OSLT75C PO
[2021-06-18] MEDS ORDERED: CASIRIVIMAB/IMDEVIMAB 1,200 MG in NS (IVPB) 250 ML IV ONE (11:15)
[2021-06-18] MEDS ORDERED: ACETAMINOPHEN 500 MG TAB (TYLENOL) PO PRN (11:15)
[2021-06-18] MEDS ORDERED: EPINEPHrine INJECTION 1 MG/ML AMP IM PRN (11:15)
[2021-06-18] MEDS ORDERED: diphenhydrAMINE 50 MG/ML INJ (BENADRYL) IV PRN (11:15)
[2021-06-18] MEDS ORDERED: ONDANSETRON 4 MG/2 ML (SDV) Z0FRAN IV PRN (11:15)
[2021-06-18 12:13] VITALS: BP 108/60
== END 2021-06-18 12:57 | disposition home or self-care (01) ==
LOC: INFUSION 11:03
PROVIDERS: ATTEND Nurse Practitioner Family
DX: Z23 Encounter for immunization (principal); U07.1 COVID-19

== ENCOUNTER → 2021-08-02 | Outpatient (CLI) | payer MEDICARE, OTHER | LOC: CARD 16:20 | PROVIDERS: ATTEND Family Medicine | DX: R00.2 Palpitations (principal); R42 Dizziness and giddiness | CPT/HCPCS: 93005 ==

== ENCOUNTER → 2021-08-23 | Outpatient (CLI) | payer MEDICARE, OTHER | LOC: CARD 15:00 | PROVIDERS: ATTEND Family Medicine | DX: I35.1 Nonrheumatic aortic (valve) insufficiency (principal); I10 Essential (primary) hypertension | CPT/HCPCS: 93306 ==

== ENCOUNTER → 2022-04-01 | Outpatient (CLI) | payer MEDICARE, OTHER ==
[~2022-04-01] MED LIST changes: -METH5TAB5 PO; +METH5TAB95 PO
--- NOTE | 2022-04-01 17:05 | Diagnostic Imaging Report ---
Indication: Routine screening. Comparison is made with prior mammograms 02/04/2021 and 12/04/2018. 2-D and 3-D bilateral screening mammography was performed with CAD. Both breasts are heterogeneously dense, limiting the sensitivity of mammography. Circumscribed nodule in the outer right breast is stable. There are scattered benign calcifications. No spiculated mass or malignant-appearing microcalcifications are seen. Axillae are unremarkable. IMPRESSION: BI-RADS Category 2 No mammographic features suspicious for malignancy are identified. ACR BI-RADS Category 2: Benign findings. Result letter will be mailed to the patient. Note: At least 10% of breast cancer is not imaged by mammography. Dictated by: Dictated on workstation # [id number]
== END ==
LOC: RAD 11:30
PROVIDERS: ATTEND Family Medicine
DX: Z12.31 Encounter for screening mammogram for malignant neoplasm of breast (principal)
CPT/HCPCS: 77063; 77067